=== PATIENT | female | born 1995 | race Caucasian/White ===

== ENCOUNTER 2019-07-22 15:45 | Outpatient (CLI) | payer OTHER, SELFPAY ==
[2019-07-22] VITALS (11 sets, daily range): BP systolic 112–136; BP diastolic 66–83; PULSE 64–80; RESP 16; TEMP 37.2; O2SAT 97; BMI 34.0
[2019-07-22 16:47] LABS: Hematocrit 32.9 % (37-47); Hemoglobin 10.8 g/dL (12.0-15.0); Mean Corp Hgb Conc 32.8 g/dL (32-36); Mean Corpuscular Hgb 30.1 pg (27.0-32.0); Mean Corpuscular Volume 91.6 fL (81-99); Mean Platelet Vol. 11.3 fl (6.2-12.0); Platelet Count 110 K/mm3 (150-450); RBC Distribution Width SD 46.9 fl (35.1-43.9); Red Blood Count 3.59 M/mm3 (4.2-5.4); White Blood Count 7.6 K/mm3 (4.4-11.0)
[2019-07-22 17:02] LABS: Creatinine, Urine (random) < 13.00 mg/dL (NO RANGE EST.); Protein, Urine (Random) 54.5 mg/dL (<11.9)
[2019-07-22 17:15] LABS: AST(SGOT) 30 U/L (15-37); Alanine Aminotransfer ALT/SGPT 36 U/L (13-56); EST Glomerular Filtration Rate 160 mL/min (>60); Est Glom Filt Rate - Afr Amer 194 mL/min (>60); Estimated Creatinine Clearance 156.12 ml/min; Uric Acid 4.3 mg/dL (2.6-6.0)
[2019-07-22 17:39] LABS: International Normalized Ratio 0.9; Prothrombin Time (Protime)PT. 11.8 SECONDS (11.7-14.9)
[2019-07-22 17:40] LABS: Partial Thromboplast Time 30.8 Seconds (24.1-36.2)
--- NOTE | 2019-07-22 21:17 | OB.TRI.NOTE ---
History of Present Illness Date of Service: 07/22/19 Was patient seen by the physician?: Yes Reason For Visit: R/O PRE ECLAMPSIA Date of Service: 07/22/19 Final CARMEL: 08/10/19 Final CARMEL Source: US <20 weeks Gestational age: 37 Weeks and 2 Days History of Present Illness: Sent here for BP check and labs. BP elevated in the office but patient was anxious. Mild intemittent BRIGHT relived w/ tylenol. No epigastric pain or diplopia. Allergies No Known Allergies Allergy (Verified 07/22/19 16:21) Laboratory Studies: Laboratory Tests 07/22/19 07/22/19 07/22/19 Range/Units 16:32 16:32 16:32 WBC (4.4-11.0) K/mm3 RBC (4.2-5.4) M/mm3 Hgb (12.0-15.0) g/dL Hct (37-47) % MCV (81-99) fL MCH (27.0-32.0) pg MCHC (32-36) g/dL RDW Std Deviation (35.1-43.9) fl RDW Coeff of Gilberto (11.6-14.6) % Plt Count (150-450) K/mm3 MPV (6.2-12.0) fl PT 11.8 (11.7-14.9) SECONDS INR 0.9 APTT 30.8 (24.1-36.2) Seconds Creatinine 0.50 L (0.55-1.02) mg/dL Estim Creat Clear Calc 156.12 ml/min Est GFR (MDRD) Af Amer 194 (>60) mL/min Est GFR (MDRD) Non-Af 160 (>60) mL/min Uric Acid 4.3 (2.6-6.0) mg/dL AST 30 (15-37) U/L ALT 36 (13-56) U/L U Random Total Protein 54.5 H (<11.9) mg/dL Urine Creatinine < 13.00 (NO RANGE EST.) mg/dL Protein/Creatinin Ratio TNP 07/22/19 Range/Units 16:32 WBC 7.6 (4.4-11.0) K/mm3 RBC 3.59 L (4.2-5.4) M/mm3 Hgb 10.8 L (12.0-15.0) g/dL Hct 32.9 L (37-47) % MCV 91.6 (81-99) fL MCH 30.1 (27.0-32.0) pg MCHC 32.8 (32-36) g/dL RDW Std Deviation 46.9 H (35.1-43.9) fl RDW Coeff of Gilberto 14.0 (11.6-14.6) % Plt Count 110 L (150-450) K/mm3 MPV 11.3 (6.2-12.0) fl PT (11.7-14.9) SECONDS INR APTT (24.1-36.2) Seconds Creatinine (0.55-1.02) mg/dL Estim Creat Clear Calc ml/min Est GFR (MDRD) Af Amer (>60) mL/min Est GFR (MDRD) Non-Af (>60) mL/min Uric Acid (2.6-6.0) mg/dL AST (15-37) U/L ALT (13-56) U/L U Random Total Protein (<11.9) mg/dL Urine Creatinine (NO RANGE EST.) mg/dL Protein/Creatinin Ratio Physical Exam Vitals: Vital Signs Temp Pulse Resp BP Pulse Ox 98.9 F 80 16 126/77 H 97 07/22/19 16:13 07/22/19 17:43 07/22/19 18:06 07/22/19 17:43 07/22/19 16:13 NST - FHR Rate Baby A Baseline: 130 Variability:: Moderate Accelerations:: 15 x 15 Decelerations:: None NST Reactive:: Yes FHR Category:: Category I Uterine Activity:: irritability Impression/Plan 23 YOF high risk primagravida, h/o VTE on lovenox no evidence of preeclampsia F/u in 3-4 days for BP check or prn symptoms of preeclampsia kick counts cont. lovenox labs reviewed, mild thrombocytopenia, likely gestational but would like to recheck CBC in 3-4 days or prn pt agrees w/ plan
== END 2019-07-22 18:02 | disposition home or self-care (01) ==
LOC: WPOUT 15:57 → OBT 15:59
PROVIDERS: Referring Provider Obstetrics & Gynecology; Visit Provider Obstetrics & Gynecology
DX: O26.893 Other specified pregnancy related conditions, third trimester (principal); R03.0 Elevated blood-pressure reading, without diagnosis of hypertension; R51 Headache; O99.113 Other diseases of the blood and blood-forming organs and certain disorders involving the immune mechanism complicating pregnancy, third trimester; D69.6 Thrombocytopenia, unspecified; O09.93 Supervision of high risk pregnancy, unspecified, third trimester; Z3A.37 37 weeks gestation of pregnancy; Z86.718 Personal history of other venous thrombosis and embolism; Z79.01 Long term (current) use of anticoagulants
CPT/HCPCS: 36415; 59025; 59050; 82565; 82570; 84156; 84450; 84460; 84550; 85027; 85610; 85730; 99218; G0378

== ENCOUNTER 2019-07-28 21:15 | Outpatient (CLI) | payer OTHER, SELFPAY ==
[2019-07-22 16:25] VITALS: BMI 34.0
[2019-07-28] VITALS (10 sets, daily range): BP systolic 129–145; BP diastolic 85–101; PULSE 76–97; RESP 16; TEMP 36.8; O2SAT 98; BMI 33.8
[2019-07-28 22:29] LABS: Mean Corp Hgb Conc 33.3 g/dL (32-36); Mean Corpuscular Hgb 30.9 pg (27.0-32.0); Mean Corpuscular Volume 92.7 fL (81-99); Mean Platelet Vol. 11.2 fl (6.2-12.0); Platelet Count 107 K/mm3 (150-450); RBC Distribution Width CV 14.6 % (11.6-14.6); Red Blood Count 3.56 M/mm3 (4.2-5.4); White Blood Count 7.5 K/mm3 (4.4-11.0)
[2019-07-28 22:37] LABS: International Normalized Ratio 0.9; Prothrombin Time (Protime)PT. 12.1 SECONDS (11.7-14.9)
[2019-07-28 22:38] LABS: Partial Thromboplast Time 32.6 Seconds (24.1-36.2)
[2019-07-28 22:39] LABS: Protein, Urine (Random) 97.5 mg/dL (<11.9); Protein:Creat Ratio 2231 mg/g CRE (0-200)
[2019-07-28 22:43] LABS: AST(SGOT) 25 U/L (15-37); Alanine Aminotransfer ALT/SGPT 34 U/L (13-56); Creatinine, Serum 0.57 mg/dL (0.55-1.02); EST Glomerular Filtration Rate 137 mL/min (>60); Est Glom Filt Rate - Afr Amer 166 mL/min (>60); Estimated Creatinine Clearance 136.94 ml/min; Uric Acid 4.5 mg/dL (2.6-6.0)
--- NOTE | 2019-07-28 23:10 | OB.TRI.NOTE ---
- Problem List (1) High blood pressure affecting in third trimester, antepartum Status: Acute (2) 38 weeks gestation of Status: Acute History of Present Illness Date of Service: 07/28/19 Was patient seen by the physician?: Yes Reason For Visit: R/O preeclampsia Date of Service: 07/28/19 Final CARMEL: 08/10/19 Final CARMEL Source: US <20 weeks Gestational age: 38 Weeks and 1 Days History of Present Illness: Patient called and stated she has been taking her Blood pressures at home and they were elevated. Reports readings of 141-161/91-106. Patient denies any headache, vision changes or RUQ pain. Patient reports history of anxiety and is feeling anxious at this time. Allergies No Known Allergies Allergy (Verified 07/28/19 22:15) - Pertinent Past Medical History Medical History: Past Medical History (Last Updated 07/28/19 @ 23:22 by Macy Workman CNM) Protein S deficiency (Acute) Factor V Leiden (Acute) Hypothyroidism (Acute) DVT (deep venous thrombosis) (Acute) Anxiety (Acute) Laboratory Studies: Laboratory Tests 07/28/19 07/28/19 07/28/19 Range/Units 22:05 22:05 22:05 WBC 7.5 (4.4-11.0) K/mm3 RBC 3.56 L (4.2-5.4) M/mm3 Hgb 11.0 L (12.0-15.0) g/dL Hct 33.0 L (37-47) % MCV 92.7 (81-99) fL MCH 30.9 (27.0-32.0) pg MCHC 33.3 (32-36) g/dL RDW Std Deviation 49.0 H (35.1-43.9) fl RDW Coeff of Gilberto 14.6 (11.6-14.6) % Plt Count 107 L (150-450) K/mm3 MPV 11.2 (6.2-12.0) fl PT 12.1 (11.7-14.9) SECONDS INR 0.9 APTT 32.6 (24.1-36.2) Seconds Creatinine 0.57 (0.55-1.02) mg/dL Estim Creat Clear Calc 136.94 ml/min Est GFR (MDRD) Af Amer 166 (>60) mL/min Est GFR (MDRD) Non-Af 137 (>60) mL/min Uric Acid 4.5 (2.6-6.0) mg/dL AST 25 (15-37) U/L ALT 34 (13-56) U/L U Random Total Protein (<11.9) mg/dL Urine Creatinine (NO RANGE EST.) mg/dL Protein/Creatinin Ratio (0-200) mg/g CRE 07/28/19 Range/Units 22:00 WBC (4.4-11.0) K/mm3 RBC (4.2-5.4) M/mm3 Hgb (12.0-15.0) g/dL Hct (37-47) % MCV (81-99) fL MCH (27.0-32.0) pg MCHC (32-36) g/dL RDW Std Deviation (35.1-43.9) fl RDW Coeff of Gilberto (11.6-14.6) % Plt Count (150-450) K/mm3 MPV (6.2-12.0) fl PT (11.7-14.9) SECONDS INR APTT (24.1-36.2) Seconds Creatinine (0.55-1.02) mg/dL Estim Creat Clear Calc ml/min Est GFR (MDRD) Af Amer (>60) mL/min Est GFR (MDRD) Non-Af (>60) mL/min Uric Acid (2.6-6.0) mg/dL AST (15-37) U/L ALT (13-56) U/L U Random Total Protein 97.5 H (<11.9) mg/dL Urine Creatinine 43.70 (NO RANGE EST.) mg/dL Protein/Creatinin Ratio 2231 H (0-200) mg/g CRE Review of Systems Constitutional: Denies: Anorexia, Fever Eyes: Denies: Blurred vision, Double vision, Vision Change HEENT: Denies: Head Aches Cardiovascular: Denies: Chest Pain Respiratory: Denies: Cough, Shortness of Breath Neurological: Denies: Blurred vision, Headaches Psychiatric: Reports: Anxiety Physical Exam Vitals: Vital Signs Temp Pulse BP Pulse Ox 98.2 F 76 131/86 H 98 07/28/19 21:33 07/28/19 22:47 07/28/19 22:47 07/28/19 21:43 General: Alert Cardiovascular: Regular rate Lungs: Normal air movement Abdomen: Soft, Non Tender, Gravid Extremities:: Normal pulses, Deep tendon reflexes - +1 , no clonus Neurological: Cranial nerves II-XII grossly intact Estimated gestational size: Appropriate for gestational size Cervix Dilation (cm): 1 Station: -3 Effacement (%): 50 NST - FHR Rate Baby A Baseline: 145 Variability:: Moderate Accelerations:: 15 x 15 Decelerations:: None NST Reactive:: Yes FHR Category:: Category I Uterine Activity:: TOCO reading every 2-5 minutes. Patient denies feeling contractions Impression/Plan 23 YO at 38.1 weeks gestation with increased blood pressures at home. H/O DVT and currently on Lovenox BID No evidence of preeclampsia Pre-E labs reviewed and are within normal limits Urine P/C ratio elevated at 2231 BP's while here in triage ranged from 129-139/ 85-92 Patient to follow up with Dr. Murrieta tomorrow for scheduled appt. Patient will hold morning Lovenox dose in case decision made for induction of labor Dr. John aware and agrees with plan of care Patient and agree with plan of care
== END 2019-07-28 23:10 | disposition home or self-care (01) ==
LOC: WPOUT 21:22 → WP 21:22
PROVIDERS: Visit Provider Advanced Practice Midwife
DX: O26.893 Other specified pregnancy related conditions, third trimester (principal); R03.0 Elevated blood-pressure reading, without diagnosis of hypertension; O99.113 Other diseases of the blood and blood-forming organs and certain disorders involving the immune mechanism complicating pregnancy, third trimester; D68.51 Activated protein C resistance; O99.343 Other mental disorders complicating pregnancy, third trimester; F41.9 Anxiety disorder, unspecified; O99.283 Endocrine, nutritional and metabolic diseases complicating pregnancy, third trimester; E03.9 Hypothyroidism, unspecified; Z3A.38 38 weeks gestation of pregnancy; Z86.718 Personal history of other venous thrombosis and embolism; Z79.01 Long term (current) use of anticoagulants
CPT/HCPCS: 36415; 59025; 59050; 82565; 82570; 84156; 84450; 84460; 84550; 85027; 85610; 85730; 99218; G0378

== ENCOUNTER 2019-07-29 10:35 | Inpatient (IN) | payer OTHER, SELFPAY ==
[2019-07-28 22:14] VITALS: BMI 33.8
[2019-07-29] VITALS (61 sets, daily range): BP systolic 128–180; BP diastolic 68–107; PULSE 70–93; RESP 18; TEMP 35.8–36.9; O2SAT 82–100; BMI 33.9
[2019-07-29] MEDS: Lactated Ringers 1,000 ML 50 ML IV (11:10)
[2019-07-29 11:25] LABS: Absolute Lymphocyte Count 1.57 X10^3/uL (0.83-4.51); Absolute Neutrophil Count 4.9 X10^3/uL (2.0-7.7); Basophil# 0.02 X10^3/uL; Basophil% 0.3 % (0-1); Eosinophil# 0.04 X10^3/uL; Eosinophils% 0.6 % (0-5); Hematocrit 35.1 % (37-47); Hemoglobin 11.4 g/dL (12.0-15.0); Lymphocyte # 1.57 X10^3/ul (4.0); Lymphocyte % 21.9 % (19-41); Mean Corp Hgb Conc 32.5 g/dL (32-36); Mean Corpuscular Hgb 29.7 pg (27.0-32.0); Mean Corpuscular Volume 91.4 fL (81-99); Mean Platelet Vol. 11.2 fl (6.2-12.0); Monocyte# 0.52 X10^3/uL; Monocyte% 7.2 % (0-10); NRBC Flagged by Analyzer 0 % (0-5); Neutrophil # 4.89 X10^3/uL (2.7-7.7); Neutrophil % 68.1 % (47-70); Platelet Count 129 K/mm3 (150-450); RBC Distribution Width CV 14.6 % (11.6-14.6); RBC Distribution Width SD 48.1 fl (35.1-43.9); Red Blood Count 3.84 M/mm3 (4.2-5.4); White Blood Count 7.2 K/mm3 (4.4-11.0)
--- NOTE | 2019-07-29 12:05 | HP.PCM_ITS ---
- Problem List (1) 38 weeks gestation of Status: Acute (2) Protein S deficiency Status: Acute (3) Factor V Leiden Status: Acute (4) Hypothyroidism Status: Acute (5) DVT (deep venous thrombosis) Status: Acute (6) Anxiety Status: Acute (7) Pre-eclampsia Status: Acute History Date of Admission: 07/29/19 Final CARMEL: 08/10/19 Final CARMEL Source: US <20 weeks Gestational age: 38 Weeks and 2 Days History of this : This is a 23 year-old, G 1, P 0, at 38 weeks gestational age who presents for an induction of labor for preeclampsia. Medical History: Medical History (Last Updated 07/28/19 @ 23:22 by Macy Workman CNM) Protein S deficiency (Acute) D68.59 Factor V Leiden (Acute) D68.51 Hypothyroidism (Acute) E03.9 DVT (deep venous thrombosis) (Acute) I82.409 Anxiety (Acute) F41.9 Allergies No Known Allergies Allergy (Verified 07/28/19 22:15) Home Medications: Home Medications Enoxaparin Sodium [Lovenox] 80 mg SQ BID 07/22/19 Ferrous Sulfate 325 mg PO QODAY 07/22/19 Pnv No.95/Ferrous Fum/Folic AC [ Vitamin Tablet] 1 ea PO DAILY 07/22/19 Smoking Status: Never smoker Number of Fetus(es): 1 NST - FHR Rate Baby A FHR Category:: Category I History Past Pregnancies: Past Pregnancies Delivery Date Name GA/ Weeks Outcome Route Wt Infant Sex Labor Length Anesthesia Delivery Location Provider FOB Labs: See [facility] records Expected Delivery Method: Spontaneous Vaginal Review of Systems Eyes: Denies: Blurred vision, Vision Change HEENT: Denies: Head Aches Cardiovascular: Denies: Chest Pain Respiratory: Denies: Shortness of Breath Gastrointestinal: Denies: Abdominal Pain, Nausea, Vomiting Gynecological: Reports: - - No ctx, lof. Good FM.. Denies: Vaginal bleeding Physical Exam Vitals: Vital Signs Temp Pulse BP Pulse Ox 98.4 F 87 137/85 H 96 07/29/19 10:57 07/29/19 10:56 07/29/19 10:56 07/29/19 10:56 General: Alert, No apparent distress HEENT: Atraumatic Abdomen: Soft, Non Tender, Gravid Neurological: Neuro grossly intact [employer]: Normal external genitalia Estimated gestational size: Appropriate for gestational size Presentation: Cephalic Cervix Dilation (cm): 1 Assessment/Plan All Active Problems (Last Updated 07/28/19 @ 23:22 by Macy Workman CNM) Pre-eclampsia (Acute) High blood pressure affecting in third trimester, antepartum (Acute) 38 weeks gestation of (Acute) Protein S deficiency (Acute) Factor V Leiden (Acute) Hypothyroidism (Acute) DVT (deep venous thrombosis) (Acute) Anxiety (Acute) This is a 23 year-old, at 38 wks gestational age admitted for IOL for pre- eclampsia. - Mild range blood pressures at prior appointments and in the office today. Elevated p/c ratio. No symptoms of pre-e. Treated 1 severe range blood pressure on admission with IV labetalol. Hypertensive protocol started. Discussed magnesium for seizure prophylaxis if she needs additional treatment for blood pressures, or if she develops any symptoms of preeclampsia - Cytotec, hinton induction - H/o DVT, protein S deficiency, and heterozygous for factor 5: Hold Lovenox at this time. Last dose of Lovenox was 07/27 at 5:30 pm. SCD's for DVT proph. Will continue Lovenox - EFW estimated to be < 4500 g and pelvis adequate. Anticipate vaginal delivery - Otherwise routine intrapartum care
[2019-07-29] MEDS: miSOPROStol 25 MCG TABLET PO (12:17)
[2019-07-29] MEDS: 0.9% Normal Saline Single 100 ML IV.SOLN. IY (13:02)
[2019-07-29] MEDS: Oxytocin 30 units/NS 500 ml 30 UNITS/500 ML IV.SOLN IV (16:06)
--- NOTE | 2019-07-29 18:56 | PCM.PN.BLA ---
Progress Note Ayoub out around 3 PM. Cervix 4 cm dilated but baby still ballotable. Unable to rupture membranes at this time. Continue titration of Pitocin. Will recheck and assess for rupture in a few hours. STROKE Vital Signs/Narrative: Vital Signs Temp Pulse BP Pulse Ox 07/29/19 18:04 98.1 F 85 132/86 H 99 07/29/19 18:03 90 98 07/29/19 18:02 85 132/86 H 07/29/19 17:07 97.8 F 85 128/82 H 96 07/29/19 17:05 85 96 07/29/19 17:03 97.9 F 07/29/19 17:02 90 128/82 H 07/29/19 16:11 83 136/80 H 07/29/19 15:48 97.8 F 83 130/84 H 98 07/29/19 15:47 97.9 F 93 98 07/29/19 15:44 82 130/84 H 07/29/19 15:30 81 137/90 H 07/29/19 15:14 75 131/86 H 07/29/19 14:59 72 133/85 H
--- NOTE | 2019-07-29 21:12 | PCM.PN.BLA ---
Progress Note Patient getting uncomfortable with contractions. Cervix remains unchanged but head is now well applied. AROM performed for clear fluid. Category 1 tracing. Continue current management. Blood pressures are mild range. Patient remains asymptomatic. STROKE Vital Signs/Narrative: Vital Signs Temp Pulse BP Pulse Ox 07/29/19 20:09 74 146/89 H 07/29/19 19:51 97.9 F 77 153/96 H 07/29/19 18:04 98.1 F 85 132/86 H 99 07/29/19 18:03 90 98 07/29/19 18:02 85 132/86 H
--- NOTE | 2019-07-29 22:01 | PCM.PN.BLA ---
Progress Note Patient has had additional severe range blood pressures. She remains asymptomatic. Given repeat severe range blood pressures will start magnesium for seizure prophylaxis. Discussed magnesium with patient. Will give a 4 g magnesium bolus followed by 2 g an hour. STROKE Vital Signs/Narrative: Vital Signs Temp Pulse BP Pulse Ox 07/29/19 21:46 75 163/90 H 07/29/19 21:35 98.1 F 75 165/94 H 98 07/29/19 20:09 74 146/89 H 07/29/19 19:51 97.9 F 77 153/96 H 07/29/19 18:04 98.1 F 85 132/86 H 99 07/29/19 18:03 90 98 07/29/19 18:02 85 132/86 H
[2019-07-29] MEDS: Lactated Ringers 500 ML 999 ML IV (22:16)
[2019-07-29] MEDS: Magnesium Sulfate 4gm/100mL 4 GM/100 ML IV.SOLN. IV (22:20)
[2019-07-29] MEDS: Magnesium Sulfate 20 GM/500 ML BAG IV (22:39)
[2019-07-29] MEDS: fentaNYL-bupivacaine (epidural) 100 ML BAG EPIDURAL (23:10)
[2019-07-30] VITALS (57 sets, daily range): BP systolic 116–146; BP diastolic 66–95; PULSE 75–99; RESP 14–18; TEMP 36.1–37.3; O2SAT 93–100
[2019-07-30] MEDS: Oxytocin 30 units/NS 500 ml 30 UNITS/500 ML IV.SOLN 334 UNITS IV (03:41)
[2019-07-30] MEDS: miSOPROStol 200 MCG Tablet 1000 MCG RECTAL (03:55)
--- NOTE | 2019-07-30 04:58 | PCM.OPRPT ---
Problem List (1) 38 weeks gestation of Status: Acute (2) Protein S deficiency Status: Acute (3) Factor V Leiden Status: Acute (4) Hypothyroidism Status: Acute (5) DVT (deep venous thrombosis) Status: Acute (6) Anxiety Status: Acute (7) Pre-eclampsia Status: Acute Report of Operation Date of Procedure: 07/30/19 Pre-Operative Diagnosis: 38 wk gestation and pre-eclampsia Post-Operative Diagnosis: As above Surgery/Procedure Performed:: Description of Surgical Findings:: Viable male in vertex presentation. Normal and intact appearing placenta with a three-vessel cord. Type of Anesthesia:: Epidural Special Medications: None Specimen's removed: Placenta Drains: Ayoub Estimated Blood Loss (mL): 200 Description of Procedure: Patient complete and pushing. Head, anterior shoulder, posterior shoulder, followed by body of infant were delivered without any force or delay. Viable was delivered atraumatically and placed on maternal abdomen. Cord was clamped and cut after 60 sec delay by the father the baby. Placenta was delivered with fundal massage. Uterus was explored x1. Fundus was firm and bleeding hemostatic. A second-degree perineal laceration was repaired in usual fashion. Instrument and sponge counts were correct. Vaginal sweep was performed. Grafts/Implants Used: None - Complications None - Admit VTE Documentation VTE Present on Admission: No - History of DVT VTE Mechan Device Prophylaxis: SCD's VTE Pharm Prophylaxis ordered?: Yes Vaginal Delivery Maternal Presentation: Medically Indicated Induction Method of Induction: Pitocin, Ayoub Bulb, Amniotomy, Cytotec Medical Reason for Induction: - - Preeclampsia Amniotic Membrane Rupture Type: Artificial Amniotic Fluid Description: Clear Surgery/ Procedure Performed: Spontaneous Vaginal Delivery Type of Anesthesia: Epidural Presentation: Vertex Placental Delivery Description: Expressed Cord Vessel Description: 3 Vessels Cord Entanglement: None Drain: Ayoub to straight drain Estimated Blood Loss: 200 Infant A gender: Male (1 minute): 9 (5 minute): 9 Episiotomy Description: None Laceration: 2nd degree Medications given after delivery: IV Pitocin, - - Cytotec rectal Complications: None
[2019-07-30] MEDS: Lactated Ringers 1,000 ML 15 ML IV (06:15)
[2019-07-30] MEDS: Magnesium Sulfate 20 GM/500 ML BAG IV ×2 (08:27→18:23)
[2019-07-30 14:17] LABS: Hematocrit 32.5 % (37-47); Hemoglobin 10.7 g/dL (12.0-15.0); Mean Corp Hgb Conc 32.9 g/dL (32-36); Mean Corpuscular Hgb 30.3 pg (27.0-32.0); Mean Corpuscular Volume 92.1 fL (81-99); Mean Platelet Vol. 10.9 fl (6.2-12.0); Platelet Count 133 K/mm3 (150-450); RBC Distribution Width CV 14.8 % (11.6-14.6); Red Blood Count 3.53 M/mm3 (4.2-5.4); White Blood Count 11.7 K/mm3 (4.4-11.0)
[2019-07-30 14:35] LABS: BUN 7 mg/dL (7-18); Creatinine, Serum 0.57 mg/dL (0.55-1.02); EST Glomerular Filtration Rate 138 mL/min (>60); Estimated Creatinine Clearance 136.94 ml/min; Glucose 119 mg/dL (74-106)
[2019-07-30 14:36] LABS: ALB/GLOB Ratio 0.8 RATIO (0.9-2.4); AST(SGOT) 25 U/L (15-37); Alanine Aminotransfer ALT/SGPT 29 U/L (13-56); Albumin, Serum 2.5 g/dL (3.2-5.0); Alkaline Phosphatase 94 U/L (45-117); Anion Gap 8 (5-15); BUN/Creat Ratio 12.3 RATIO (10-20); Calcium,Total 7.5 mg/dL (8.5-10.1); Chloride 108 mmol/L (98-107); Est Glom Filt Rate - Afr Amer 167 mL/min (>60); Globulin 3.1 g/dL (2.2-4.2); Potassium 3.9 mmol/L (3.5-5.1); Protein, Total 5.6 g/dL (6.4-8.2); Sodium Level 140 mmol/L (136-145)
[2019-07-30] MEDS: Acetaminophen 500 MG Tablet 1000 MG PO (15:59)
[2019-07-30] MEDS: Enoxaparin 80 MG/0.8 ML Syringe SC (15:59)
[2019-07-31] VITALS (17 sets, daily range): BP systolic 117–132; BP diastolic 66–81; PULSE 68–87; RESP 16–18; TEMP 36.1–37.1; O2SAT 98–99
[2019-07-31] MEDS: Enoxaparin 80 MG/0.8 ML Syringe SC ×2 (03:40→16:46)
--- NOTE | 2019-07-31 08:29 | PCM.PN.OB ---
Patient Problems: Active and Suspected Problems (Last Updated 07/28/19 @ 23:22 by Macy Workman CNM) Pre-eclampsia (Acute) Subjective: Patient doing well. Denies headache, vision changes, right upper quadrant pain, nausea, vomiting. Denies lightheadedness, dizziness, leg pain. Ambulating and voiding without difficulty. Lochia normal. . - Physical Exam Vitals/I&O's: Vital Signs Temp Pulse Resp BP Pulse Ox 97.3 F L 78 16 127/73 H 98 07/31/19 08:21 07/31/19 08:21 07/31/19 08:21 07/31/19 08:21 07/31/19 03:31 Oxygen Delivery Method Room Air Weight: 203 lb 14.841 oz Body Mass Index (BMI) 33.9 Intake and Output for Last 24 Hours 07/29/19 07/30/19 07/31/19 23:59 23:59 23:59 Intake Total 2814.31 / 2814.31 5103.62 / 5103.62 653.01 / 653.01 Output Total 1700 / 1700 5715 / 5715 725 / 725 Balance 1114.31 / 1114.31 -611.38 / -611.38 -71.99 / -71.99 General: Alert, No apparent distress Extremities: Edema Skin: No rashes Neurological: Neuro grossly intact Psych/Mental Status: Normal Affect, Appropriate Laboratory Results 07/30/19 14:05: WBC 11.7 H, RBC 3.53 L, Hgb 10.7 L, Hct 32.5 L, MCV 92.1, MCH 30.3, MCHC 32.9, RDW Std Deviation 49.0 H, RDW Coeff of Gilberto 14.8 H, Plt Count 133 L, MPV 10.9 07/30/19 14:05: Sodium 140, Potassium 3.9, Chloride 108 H, Carbon Dioxide 24.0, Anion Gap 8, BUN 7, Creatinine 0.57, Estim Creat Clear Calc 136.94, Est GFR (MDRD) Af Amer 167, Est GFR (MDRD) Non-Af 138, BUN/Creatinine Ratio 12.3, Glucose 119 H, Calcium 7.5 L, Total Bilirubin 0.20, AST 25, ALT 29, Alkaline Phosphatase 94, Total Protein 5.6 L, Albumin 2.5 L, Globulin 3.1, Albumin/Globulin Ratio 0.8 L Current Medications Acetaminophen (Tylenol) 1,000 mg PO Q8H PRN PRN PRN Reason: Pain Score 1-3/10 Last Admin: 07/30/19 15:59 Dose: 1,000 mg Documented by: Bisacodyl (Dulcolax) 10 mg RECTAL UD PRN PRN Reason: If no BM Dibucaine (Dibucaine) 1 applic TOPICAL TID PRN PRN; Protocol PRN Reason: Discomfort Enoxaparin Sodium (Lovenox) 80 mg SC Q12H [facility] Last Admin: 07/31/19 03:40 Dose: 80 mg Documented by: Hydrocortisone (Hytone) 1 applic TOPICAL TID PRN PRN; Protocol PRN Reason: Discomfort Lactated Ringer's () 1,000 mls @ 15 mls/hr IV .Q48H [facility] Last Infusion: 07/31/19 03:46 Dose: Infused Documented by: Naloxone HCl 4 mg/ Dextrose 504 mls @ 0 mls/hr IV .Q0M PRN; Protocol PRN Reason: To maintain Resp. rate >10 Ibuprofen (Motrin) 600 mg PO Q6H PRN PRN PRN Reason: Pain Score 1-3/10 Methylergonovine Maleate (Methergine) 0.2 mg IM X1 PRN PRN Reason: Excess bleeding/uterine atony Nalbuphine HCl (Nubain) 5 mg IV Q3H PRN PRN PRN Reason: ITCHING Naloxone HCl (Narcan) 0.02 mg IV Q1M PRN PRN Reason: RR< 10 AND PT UNRESPONSIVE Ondansetron HCl (Zofran) 4 mg IV Q4H PRN PRN PRN Reason: Nausea Senna/Docusate Sodium (Senokot-S, Roseanna-Colace) 1 - 2 tablet PO DAILY PRN PRN PRN Reason: Constipation Simethicone (Mylicon) 80 mg PO PCHS PRN PRN Reason: Indigestion/Stomach pain Sodium Chloride () 5 - 15 ml IV UD PRN PRN Reason: SALINE FLUSH Medical Necessity - Tobacco Use Smoking Status: Never smoker Assessment/Plan All Active Problems (Last Updated 07/28/19 @ 23:22 by Macy Plotts, CNM) Pre-eclampsia (Acute) High blood pressure affecting in third trimester, antepartum (Acute) 38 weeks gestation of (Acute) Protein S deficiency (Acute) Factor V Leiden (Acute) Hypothyroidism (Acute) DVT (deep venous thrombosis) (Acute) Anxiety (Acute) Patient is day 1 from a spontaneous vaginal delivery. She was induced for preeclampsia with severe features. She is completed 24 hours of magnesium drip for seizure prophylaxis. - No pre-e symptoms today. Labs reviewed from yesterday. BP normal. Will check BP q 2 hours today. Discussed with pt she will need virtual visit with BP check this week. She has a BP cuff and has been checking her BP at home so feels comfortable with this plan -History of DVT, protein S deficiency, factor V: Patient is weight is 191 pounds. We will continue current dosing of therapeutic Lovenox. Will notify hematology the patient has delivered and instructed patient to call for follow-up - Meeting all milestones to go home - Discussed COVID-19 with patient - She desires to go home today. Okay to d/c later this afternoon after 4pm if she remains asymptomatic and her BP's are normal - She has lovenox and a BP cuff at home - Reviewed d/c instructions and signs and symptoms of worsening pre-e and when to call
--- NOTE | 2019-07-31 08:41 | DCINST_ITS ---
Discharge Diet: No Restrictions Discharge Activity: May Shower, May Take a Tub Bath May shower in (days): 0 May resume sexual activity in: 6 weeks Ice area for (Minutes): 15 Weight Bearing Status: Weight bearing as tolerated Lifting Restrictions: None Call your doctor if you observe: Fever of 101 or Higher, Inability to urinate, Inability to have a bowel movement, Using more than one pad per hour, Shortness of breath, Dizziness, Chest pain, Increased palpitations (irregular heartbeat), Calf discomfort, Uncontrolled pain Cleanse incision/area with: Soap & Water Instructions: After a Vaginal , Understanding Preeclampsia Additional Instructions: If you experience any of the following, contact your healthcare provider. * Bleeding that soaks a pad every hour for 2 hours * Fever 100.4 or higher * Unrelieved incision or abdominal pain * Swelling, redness, discharge or bleeding from your incision or episiotomy site * Your incision begins to separate * Problems urinating (including inability to urinate or burning while urinating). * Visual changes * Severe headache * Flu-like symptoms * Pain or redness in one of both of your breasts * Pain, warmth, tenderness or swelling in your legs, especially the calf area * Frequent nausea and vomiting * Symptoms of depression or anxiety If you experience any of the following, call 911 or go to the nearest Emergency Room. * Chest pain * Problems breathing * Seizure activity * Partial or complete paralysis of a body part, slurred speech, weakness or drooping of the face, or a sudden inability to walk or hold your balance Allergies/Adverse Reactions: Allergies No Known Allergies Allergy (Verified 07/28/19 22:15) Medications to take at Discharge Enoxaparin Sodium [Lovenox] 80 mg SQ BID 07/22/19 Ferrous Sulfate 325 mg PO QODAY 07/22/19 Pnv No.95/Ferrous Fum/Folic AC [ Vitamin Tablet] 1 ea PO DAILY 07/22/19 Please Follow Up With: Katja Moreno DO When: 1 week for blood pressure check. 6 weeks for check. Please Follow Up With: Ronny Rivas DO When: Call for follow up. Test Results: Test results from this visit will be discussed in further detail at your follow- up appointment, if applicable.
[2019-07-31] MEDS: Acetaminophen 500 MG Tablet 1000 MG PO (09:46)
== END 2019-07-31 18:20 | disposition home or self-care (01) | DRG 806 ==
PROVIDERS: Admitting Provider Obstetrics & Gynecology; Visit Provider Obstetrics & Gynecology
DX: O14.14 Severe pre-eclampsia complicating childbirth (principal); R03.0 Elevated blood-pressure reading, without diagnosis of hypertension; O99.12 Other diseases of the blood and blood-forming organs and certain disorders involving the immune mechanism complicating childbirth; D68.51 Activated protein C resistance; D68.59 Other primary thrombophilia; O70.1 Second degree perineal laceration during delivery; O99.284 Endocrine, nutritional and metabolic diseases complicating childbirth; E03.9 Hypothyroidism, unspecified; Z79.01 Long term (current) use of anticoagulants; Z79.899 Other long term (current) drug therapy; Z86.718 Personal history of other venous thrombosis and embolism; Z3A.38 38 weeks gestation of pregnancy; Z37.0 Single live birth
CPT/HCPCS: 59025; 59050; 80053; 85025; 85027; 86850; 86900; 86901; 99218; J7120; G0378; J3490

== ENCOUNTER 2021-05-25 21:55 | Inpatient (IN) | payer OTHER, SELFPAY ==
[2021-05-25 21:47] VITALS: PULSE 119; O2SAT 100
[2021-05-25] MEDS: Lactated Ringers 1,000 ML 200 ML IV (21:50)
[2021-05-25 21:52] VITALS: PULSE 113; O2SAT 99
[2021-05-25 21:57] VITALS: PULSE 102; O2SAT 99
[2021-05-25 21:59] VITALS: BP 120/65; PULSE 105
--- NOTE | 2021-05-25 21:59 | HP.PCM.OB_ITS ---
HPI - General General Date of Admission: 05/25/21 HPI Narrative MAC TALBOT, is a 25 F at 37.6 weeks gestation who presents to triage with large gush of fluid around 2044 and saw blood. Patient evaluated at bedside upon arriving to unit. Positive movement. Had intercourse last night and began having more frequent, painful contractions today. Rates pain 4/10. complicated by history of DVT, Factor V, protein S deficiency, hypothyroidism, anxiety and depression. Maternal Data Information CARMEL Calculator Estimated Delivery Date Method Current WG Current Estimate 06/09/21 Manual 37w 6d [facility] Medical History (Updated 05/25/21 @ 22:18 by Macy Workman CNM) Anxiety DVT (deep venous thrombosis) Factor V Leiden Hypothyroidism Protein S deficiency Home Medications PNV cmb#[id number]-ferrous fumarate-FA 1 ea PO DAILY 07/22/19 [History Last Taken 07/29/19 00:00 1 tab] enoxaparin 80 mg SQ BID 07/22/19 [History Last Taken 07/28/19 18:00] ferrous sulfate 325 mg PO QODAY 07/22/19 [History Last Taken 07/27/19 18:00 1 tab] aspirin 05/25/21 [History Last Taken 05/24/21 21:30] levothyroxine [Synthroid] 25 mcg PO DAILY 05/25/21 [History Last Taken 05/25/21 07:30] Allergy/AdvReac Type Severity Reaction Status Date / Time latex Allergy Itching Verified 05/25/21 22:05 Social History Smoking Status: Never smoker History Elective abortions Hx Para 0 Spontaneous abortions Hx # Term Pregnancies Ectopic pregnancies Hx # Pregnancies Multiple births # of living children NST FHR Rate Baby A Baseline: 135 Variability:: Moderate Accelerations:: 15 x 15 Decelerations:: None NST Reactive:: Yes FHR Category:: Category I Uterine Activity:: 2-3 minutes ROS Eyes Eyes: Denies blurry vision, change in vision or spots in vision ENT HEENT: Denies dizziness or headache(s) Cardiovascular Cardiovascular: Denies abdominal pain, chest pain or dyspnea Respiratory/Chest Respiratory/Chest: Denies cough, dyspnea, shortness of breath at rest or shortness of breath with exertion Gastrointestinal Gastrointestinal: Denies abdominal pain, diarrhea or vomiting Genitourinary Genitourinary: Denies change in urinary stream, difficulty urinating or dysuria Musculoskeletal Musculoskeletal: Reports none Integumentary Integumentary: Denies rash Neurologic Neurologic: Denies dizziness, headache(s), memory loss or weakness Psychiatric Psychiatric: Reports none Vital Signs Vital Signs Vital Signs: 05/25/21 21:47 05/25/21 21:52 05/25/21 21:57 Pulse Rate 119 H 113 H 102 H Pulse Ox 100 99 99 Physical Exam Const alert, oriented x3 and no apparent distress General Appearance: cooperative Orientation / Consciousness: awake Exam Limitations: no limitations HEENT normocephalic Head and Scalp: normal to inspection Eyes General Eye: normal appearance of both eyes Neck full ROM and no lymphadenopathy Lymph Lymphatic: no lymphadenopathy noted Chest inspection of chest normal Resp normal respiratory effort, normal air movement and clear to auscultation bilaterally Effort and Inspection: able to speak in complete sentences and symmetric chest movement Cardio regular rate and regular rhythm GI normal to inspection, nondistended, normoactive bowel sounds OB / External & Speculum: vaginal bleeding Manual OB Exam: dilated 2, effaced 60 and station -2 Amniotic Fluid: bloody amniotic fluid Back/Spine normal ROM Extremity full ROM and no calf tenderness Skin no rashes or lesions noted General Skin Exam: no breakdown Neuro oriented x3 and CN's II-XII intact bilaterally Psych mental status grossly normal and thought process normal Labs Labs Labs: Blood Type A POSITIVE Antibody Screen NEGATIVE Hct 32.5 % (37-47) L Hgb 10.7 g/dL (12.0-15.0) L Rhogam given: No Rubella - immune HB- neg HC- neg HIV- NR RPR- NR GBS- negative Assessment & Plan (1) Protein S deficiency: (2) Factor V Leiden: (3) Hypothyroidism: QUALIFIERS: Hypothyroidism type: unspecified Qualified Code(s): E03.9 - Hypothyroidism, unspecified (4) 37 weeks gestation of : (5) PROM (premature rupture of membranes): QUALIFIERS: PROM gestational age: full term PROM onset of labor timing: unspecified duration between rupture of membranes and onset of labor Qualified Code(s): O42.92 - Full-term premature rupture of membranes, unspecified as to length of time between rupture and onset of labor (6) History of DVT (deep vein thrombosis): PLAN: CE- /-2 vertex presentation Cat. 1 tracing TOCO- every 2-3 minutes, palpate mild and relaxed in between Admit to labor and delivery- PROM Routine labs- add PTT/INR Start IV fluids and run per policy Pain medications when indicated GBS negative Patient desires physiological labor and would like to wait before start of Pitocin IV Dr. Bonilla notified of admission and is collaborating physician
[2021-05-25 22:01] VITALS: BMI 34.7
[2021-05-25 22:29] LABS: Absolute Lymphocyte Count 2.49 X10^3/uL (0.83-4.51); Basophil# 0.07 X10^3/uL; Basophil% 0.7 % (0-1); Eosinophil# 0.05 X10^3/uL; Eosinophils% 0.5 % (0-5); Hematocrit 31.9 % (37-47); Hemoglobin 10.4 g/dL (12.0-15.0); Lymphocyte # 2.49 X10^3/ul (0.83-4.51); Lymphocyte % 25.7 % (19-41); Mean Corp Hgb Conc 32.6 g/dL (32-36); Mean Corpuscular Hgb 29.3 pg (27.0-32.0); Mean Corpuscular Volume 89.9 fL (81-99); Mean Platelet Vol. 10.2 fl (6.2-12.0); Monocyte# 0.66 X10^3/uL; Monocyte% 6.8 % (0-10); NRBC Flagged by Analyzer 0 % (0-5); Neutrophil # 5.97 X10^3/uL (2.7-7.7); Neutrophil % 61.8 % (47-70); Platelet Count 188 K/mm3 (150-450); RBC Distribution Width CV 16.4 % (11.6-14.6); RBC Distribution Width SD 53.1 fl (35.1-43.9); Red Blood Count 3.55 M/mm3 (4.2-5.4); White Blood Count 9.7 K/mm3 (4.4-11.0)
[2021-05-25 22:30] LABS: POSITIVE COUNT NO; POSITIVE DIFFERENTIAL NO; POSITIVE MORPHOLOGY NO
[2021-05-25 22:33] LABS: Prothrombin Time (Protime)PT. 12.2 SECONDS (11.7-14.9)
[2021-05-25 22:34] LABS: Partial Thromboplast Time 24.9 Seconds (24.1-36.2)
[2021-05-25] MEDS: Lactated Ringers 500 ML 999 ML IV (22:53)
[2021-05-25 23:38] VITALS: BP 120/71; PULSE 95; TEMP 36.3
[2021-05-26] VITALS (36 sets, daily range): BP systolic 91–126; BP diastolic 51–71; PULSE 78–250; RESP 14–17; TEMP 36.2–36.9; O2SAT 83–100
[2021-05-26] MEDS: Lactated Ringers 1,000 ML 200 ML IV ×2 (03:40→10:00)
[2021-05-26] MEDS: Lactated Ringers 500 ML 999 ML IV ×2 (03:42→07:57)
[2021-05-26] MEDS: Oxytocin 30 units/NS 500 ml 30 UNITS/500 ML IV.SOLN IV (03:43)
[2021-05-26] MEDS: fentaNYL-bupivacaine (epidural) 100 ML BAG EPIDURAL (08:45)
--- NOTE | 2021-05-26 09:08 | PCM.PN.OB ---
Subjective Subjective Patient seen at bedside. Just got epidural for pain control. Feeling small amount of pressure with contractions but no pain. Objective Data Objective Data Vital Signs: Vital Signs Temp Pulse BP Pulse Ox 97.3 F L 100 108/56 L 100 05/26/21 07:18 05/26/21 09:07 05/26/21 09:07 05/26/21 09:03 Weight: 202 lb 6.4 oz Body Mass Index (BMI) 34.7 Intake & Output: Intake and Output for Last 24 Hours 05/24/21 05/25/21 05/26/21 23:59 23:59 23:59 Intake Total 710 / 710 1800.60 / 1800.60 Balance 710 / 710 1800.60 / 1800.60 Lab / Micro Data Result Diagrams: 05/25/21 21:55 Labs: Laboratory Results - last 24 hr 05/25/21 21:55: WBC 9.7, RBC 3.55 L, Hgb 10.4 L, Hct 31.9 L, MCV 89.9, MCH 29.3, MCHC 32.6, RDW Std Deviation 53.1 H, RDW Coeff of Gilberto 16.4 H, Plt Count 188, MPV 10.2, Immature Gran % (Auto) 4.500 H, Neut % (Auto) 61.8, Lymph % (Auto) 25.7, [place] % (Auto) 6.8, Eos % (Auto) 0.5, Baso % (Auto) 0.7, Absolute Neuts (auto) 6.0, Absolute Lymphs (auto) 2.49, Nucleated RBC % 0 05/25/21 21:55: Blood Type A POSITIVE, Antibody Screen NEGATIVE 05/25/21 21:55: PT 12.2, INR 1.0, APTT 24.9 Micro: Microbiology 05/25/21 21:50 Nasal Secretion SARS-CoV-2 Antigen (Rapid) - Final ROS Eyes Eyes: Denies blurry vision, change in vision or spots in vision ENT HEENT: Denies dizziness or headache(s) Cardiovascular Cardiovascular: Denies abdominal pain, chest pain or dyspnea Respiratory/Chest Respiratory/Chest: Denies cough, dyspnea, shortness of breath at rest or shortness of breath with exertion Gastrointestinal Gastrointestinal: Denies abdominal pain, diarrhea or vomiting Genitourinary Genitourinary: Denies change in urinary stream, difficulty urinating or dysuria Musculoskeletal Musculoskeletal: Reports none Integumentary Integumentary: Denies rash Neurologic Neurologic: Denies dizziness, headache(s), memory loss or weakness Physical Exam Const alert and no apparent distress General Appearance: cooperative and comfortable Exam Limitations: no limitations HEENT normocephalic Eyes General Eye: normal appearance of both eyes Neck full ROM General: normal visual inspection Chest Chest: symmetrical chest wall rise Resp normal respiratory effort and normal air movement Effort and Inspection: symmetric chest movement Auscultation: clear to auscultation bilaterally Cardio regular rate and regular rhythm GI normal to inspection, nondistended, normoactive bowel sounds Back/Spine normal ROM Extremity full ROM and no calf tenderness General Extremity: normal exam except as noted Skin no rashes or lesions noted Neuro CN's II-XII intact bilaterally Psych mental status grossly normal NST FHR Rate Baby A Baseline: 130 Variability:: Moderate Accelerations:: 15 x 15 Decelerations:: None NST Reactive:: Yes FHR Category:: Category I Uterine Activity:: 2-3 Assessment & Plan (1) 38 weeks gestation of : (2) PROM (premature rupture of membranes): QUALIFIERS: PROM onset of labor timing: unspecified duration between rupture of membranes and onset of labor PROM gestational age: full term Qualified Code(s): O42.92 - Full-term premature rupture of membranes, unspecified as to length of time between rupture and onset of labor (3) History of DVT (deep vein thrombosis): (4) Protein S deficiency: (5) Factor V Leiden: (6) Hypothyroidism: QUALIFIERS: Hypothyroidism type: unspecified Qualified Code(s): E03.9 - Hypothyroidism, unspecified PLAN: Cat. 1 tracing Pitocin at 4 mu/min- continue to increase per protocol IUPC placed without difficulty CE- /-2 Continue present plan of care Anticipate
[2021-05-26] MEDS: Oxytocin 30 units/NS 500 ml 30 UNITS/500 ML IV.SOLN 334 UNITS IV (11:07)
--- NOTE | 2021-05-26 11:31 | EX.PCM.OBRPT ---
Assessment & Plan (1) (spontaneous vaginal delivery): (2) Perineal laceration, second degree, delivered: (3) History of DVT (deep vein thrombosis): (4) Protein S deficiency: (5) Factor V Leiden: Maternal Data Information CARMEL Calculator Estimated Delivery Date Method Current WG Current Estimate 06/09/21 Manual 38w 0d Vaginal Delivery Maternal Presentation Maternal Presentation: Spontaneous Rupture of Membranes Maternal Presentation: Patient is a at 37.6 weeks gestation that arrived to unit with SROM for blood tinged fluid. Operative Information Date of Procedure: 05/26/21 Pre-Operative Diagnosis: Term gestation, SROM Post-Operative Diagnosis: , Live female infant Surgery / Procedure Performed: Spontaneous Vaginal Delivery Type of Anesthesia: Epidural Drain: Ayoub to straight drain Estimated Blood Loss: 300 Time of Delivery: 11:06 Findings Description of Procedure: Called to patient's room for complete dilation and feeling pressure. Provided bedside support through pushing. Patient pushing well with contractions. head delivered in direct OP position with minimal maternal effort followed by shoulders and remainder of . Vigorous female placed on maternal abdomen and attended to by nursing staff. Pitocin IV started for active management of the third stage of labor. 3 vessel cord clamped and cut by FOB after 3 minute delay. Placenta delivered Dudley mechanism with moderate sized clot noted that was expelled. Fundus firm. Second degree perineal laceration repaired in usual fashion using 3-0 Vicryl Rapide. Vaginal sweep completed by me. Hemostasis obtained. Patient is higher risk for PPH due to current daily Lovenox use. EBl 300 cc. APGARS 9/9. Dr. Bonilla notified of delivery. Presentation: Vertex (Direct OP) Amniotic Membrane Rupture Type: Spontaneous Time of Membrane Rupture: 2044 Amniotic Fluid Description: Bloody Placental Delivery Description: Spontaneous Cord Vessel Description: 3 Vessels Cord Entanglement: None Infant A Gender: Female (1 minute): 9 (5 minute): 9 Delayed Cord Clamping: Yes
[2021-05-26] MEDS: Ferrous Sulfate 325 MG Tablet PO (13:46)
[2021-05-26] MEDS: Naproxen 500 MG Tablet PO (13:46)
[2021-05-26] MEDS: Acetaminophen 500 MG Tablet 1000 MG PO (18:28)
[2021-05-27 00:29] VITALS: BP 107/62; PULSE 86; RESP 16; TEMP 36.2; O2SAT 99
[2021-05-27] MEDS: Naproxen 500 MG Tablet PO (00:29)
[2021-05-27 04:59] VITALS: BP 108/60; PULSE 93; RESP 18; TEMP 36.2; O2SAT 99
--- NOTE | 2021-05-27 06:38 | PN.OBGYN_ITS ---
Subjective Subjective Patient seen at bedside. Just showered. Feeling good. Denies any pain. Ambulating and voiding without difficulty. Denies headache, SOB, CP, or dizziness. independently. Desires discharge home today. Objective Data Objective Data Vital Signs: Vital Signs Temp Pulse Resp BP Pulse Ox 97.2 F L 93 18 108/60 99 05/27/21 04:59 05/27/21 04:59 05/27/21 04:59 05/27/21 04:59 05/27/21 04:59 Oxygen Delivery Method Room Air Weight: 202 lb 6.4 oz Body Mass Index (BMI) 34.7 Intake & Output: Intake and Output for Last 24 Hours 05/25/21 05/26/21 05/27/21 23:59 23:59 23:59 Intake Total 710 / 710 3537.76 / 3537.76 Output Total 1650 / 1650 Balance 710 / 710 1887.76 / 1887.76 Lab / Micro Data Result Diagrams: 05/25/21 21:55 Micro: Microbiology 05/25/21 21:50 Nasal Secretion SARS-CoV-2 Antigen (Rapid) - Final ROS Eyes Eyes: Denies blurry vision, change in vision or spots in vision ENT HEENT: Denies dizziness or headache(s) Cardiovascular Cardiovascular: Denies abdominal pain, chest pain or dyspnea Respiratory/Chest Respiratory/Chest: Denies cough, dyspnea, shortness of breath at rest or shortness of breath with exertion Gastrointestinal Gastrointestinal: Denies abdominal pain, diarrhea or vomiting Genitourinary Genitourinary: Denies change in urinary stream, difficulty urinating or dysuria Musculoskeletal Musculoskeletal: Reports none Integumentary Integumentary: Denies rash Neurologic Neurologic: Denies dizziness, headache(s), memory loss or weakness Physical Exam Const alert and no apparent distress General Appearance: cooperative and comfortable Exam Limitations: no limitations HEENT normocephalic Eyes General Eye: normal appearance of both eyes Neck full ROM General: normal visual inspection Chest Chest: symmetrical chest wall rise Resp normal respiratory effort and normal air movement Effort and Inspection: symmetric chest movement Auscultation: clear to auscultation bilaterally Cardio regular rate and regular rhythm GI normal to inspection, nondistended, normoactive bowel sounds Back/Spine normal ROM Extremity full ROM and no calf tenderness General Extremity: normal exam except as noted Skin no rashes or lesions noted Neuro CN's II-XII intact bilaterally Psych mental status grossly normal Assessment & Plan (1) Perineal laceration, second degree, delivered: (2) (spontaneous vaginal delivery): (3) History of DVT (deep vein thrombosis): (4) Protein S deficiency: (5) Factor V Leiden: PLAN: PPD 1 Routine care support Continue Lovenox 60 mg SQ Daily- patient to follow up track coach Discharge home with follow up in office
--- NOTE | 2021-05-27 06:46 | PCM.DC ---
Discharge Instructions Diet Discharge Diet: No restrictions Activity May resume sexual activity in: 6-8 weeks Weight Bearing Status: Weight bearing as tolerated Dressing / Incision Call your doctor if you observe: Fever of 101 or Higher, Inability to urinate, Using more than 1 pad per hour, Shortness of breath, Chest pain, Calf discomfort and Uncontrolled pain Follow Up Care Please Follow Up With: Macy Workman CNM When: 2 weeks virtual visit/ 6 weeks in office Test Results: Test results from this visit will be discussed in further detail at your follow-up appointment, if applicable. Discharge Plan Admission Admit Date/Time: 05/25/21 21:55 Primary Reason for Your Visit: Labor and Delivery Attending Provider: Macy Workman Discharge Orders/Prescriptions Prescriptions: New enoxaparin 60 mg/0.6 mL Syringe 60 mg subcut DAILY Qty: 0 RF: 0 Continued ferrous sulfate 325 MG tablet 325 mg PO QODAY RF: 0 PNV cmb#95-ferrous fumarate-FA 1 EACH tablet 1 ea PO DAILY RF: 0 levothyroxine [Synthroid] 25 mcg Tablet 25 mcg PO DAILY RF: 0 Discontinued enoxaparin 80 MG/0.8 ML syringe 80 mg SQ BID RF: 0 aspirin 81 mg Capsule RF: 0 Disposition Disposition (needs filled in before D/C Order can be placed): Home, Self Care
[2021-05-27] MEDS: Levothyroxine 25 MCG TABLET PO (07:11)
[2021-05-27 09:20] VITALS: BP 114/62; PULSE 96; RESP 16; TEMP 36.2; O2SAT 98
[2021-05-27] MEDS: Acetaminophen 500 MG Tablet 1000 MG PO (09:24)
[2021-05-27] MEDS: Prenatal Vits Tablet 1 TABLET PO (09:24)
[2021-05-27] MEDS: Enoxaparin 60 MG/0.6 ML Syringe SC (09:24)
[2021-05-27 12:00] VITALS: BP 104/59; PULSE 95; RESP 16; TEMP 36.4; O2SAT 98
== END 2021-05-27 13:20 | disposition home or self-care (01) | DRG 806 ==
LOC: WPOUT 21:59 → WP 21:59
PROVIDERS: Admitting Provider Advanced Practice Midwife; Visit Provider Advanced Practice Midwife
DX: O42.92 Full-term premature rupture of membranes, unspecified as to length of time between rupture and onset of labor (principal); Z37.0 Single live birth; D68.59 Other primary thrombophilia; D68.2 Hereditary deficiency of other clotting factors; O99.12 Other diseases of the blood and blood-forming organs and certain disorders involving the immune mechanism complicating childbirth; E03.9 Hypothyroidism, unspecified; Z79.01 Long term (current) use of anticoagulants; Z3A.38 38 weeks gestation of pregnancy; O99.284 Endocrine, nutritional and metabolic diseases complicating childbirth; O70.1 Second degree perineal laceration during delivery; Z79.82 Long term (current) use of aspirin; Z86.718 Personal history of other venous thrombosis and embolism; Z79.890 Hormone replacement therapy; Z20.822 Contact with and (suspected) exposure to COVID-19
CPT/HCPCS: 59025; 59050; 85025; 85610; 85730; 86850; 86900; 86901; 87426; 99218; J7120; G0378

== ENCOUNTER 2024-05-18 23:17 | Outpatient (CLI) | payer OTHER, SELFPAY ==
[2024-05-18 23:21] VITALS: BMI 33.1
[2024-05-18 23:31] VITALS: BP 125/76; PULSE 98; RESP 16; TEMP 36.3; O2SAT 98
[2024-05-18 23:32] VITALS: PULSE 105; O2SAT 98
--- NOTE | 2024-05-19 08:51 | OB.TRI.HP_ITS ---
HPI - General General Date of Admission: 05/18/24 Date of Service: 05/18/24 Chief Complaint: contractions HPI Narrative MAC TALBOT, is a 28 F 3 para 2 who presents complaining contractions. Maternal Data Information Final CARMEL: 06/01/24 Gestational age: 38 0/7 [facility] Medical History (Updated 05/19/24 @ 08:[address] Karolina Murrieta MD) Wears contact lenses Anxiety Low iron Restless legs Non-smoker Shortness of breath on exertion Leg cramps History of Holter monitoring History of echocardiogram History of stress test Perineal laceration, second degree, delivered (spontaneous vaginal delivery) DVT (deep venous thrombosis) depression PROM (premature rupture of membranes) 37 weeks gestation of Anxiety DVT (deep venous thrombosis) Hypothyroidism Factor V Leiden Protein S deficiency 38 weeks gestation of Home Medications ?Medication ?Instructions ?Recorded ?Last Taken ?Type vit no.95-ferrous 1 ea PO DAILY vitamin 07/22/19 05/24/21 08:00 History fumarate 28 mg-folic acid 800 mcg tablet aspirin 81 mg tablet,delayed 81 mg PO DAILY 05/13/24 Unknown History release (Adult Low Dose Aspirin) enoxaparin 80 mg/0.8 mL 80 mg subcut DAILY CLOTTING DISORD 05/13/24 05/18/24 08:00 History subcutaneous syringe Allergy/AdvReac Type Severity Reaction Status Date / Time latex Allergy Itching Verified 05/18/24 23:40 Social History Smoking Status: Never smoker History 2 Elective abortions Hx Para 1 Spontaneous abortions Hx # Term Pregnancies Ectopic pregnancies Hx # Pregnancies Multiple births # of living children 2 NST FHR Rate Baby A Baseline: 130 Variability:: Moderate Accelerations:: 15 x 15 Decelerations:: None NST Reactive:: Yes Uterine Activity:: Irregular contractions Assessment & Plan (1) High-risk in third trimester: PLAN: False labor. No cervical change. DC home with routine instructions follow-up in the office as scheduled or as needed.
== END 2024-05-19 01:29 | disposition home or self-care (01) ==
LOC: WPOUT 23:19 → WP 23:19
PROVIDERS: PCP Nurse Practitioner Family; Referring Provider Obstetrics & Gynecology; Visit Provider Obstetrics & Gynecology
DX: O47.1 False labor at or after 37 completed weeks of gestation (principal); O09.93 Supervision of high risk pregnancy, unspecified, third trimester; Z79.82 Long term (current) use of aspirin; Z79.01 Long term (current) use of anticoagulants; Z79.899 Other long term (current) drug therapy; Z3A.38 38 weeks gestation of pregnancy
CPT/HCPCS: 59025; 59050; 99221; G0378

== ENCOUNTER 2024-05-25 07:20 | Inpatient (IN) | payer OTHER, SELFPAY ==
[2024-05-25] VITALS (41 sets, daily range): BP systolic 100–132; BP diastolic 52–78; PULSE 68–103; RESP 15–17; TEMP 36.3–36.9; O2SAT 95–100; BMI 34.9
[2024-05-25] MEDS: Lactated Ringers 1,000 ML 50 ML IV (07:55)
[2024-05-25] MEDS: Oxytocin 15 Units/NS 250ml 15 UNITS/250 ML IV.SOLN 2 UNITS IV (07:56)
[2024-05-25 08:47] LABS: Absolute Lymphocyte Count 1.32 X10^3/uL (0.83-4.51); Absolute Neutrophil Count 3.9 X10^3/uL (2.0-7.7); Basophil# 0.02 X10^3/uL; Basophil% 0.3 % (0-1); Eosinophil# 0.02 X10^3/uL; Eosinophils% 0.3 % (0-5); Hematocrit 32.8 % (37-47); Hemoglobin 11.2 g/dL (12.0-15.0); Lymphocyte # 1.32 X10^3/ul (0.83-4.51); Mean Corp Hgb Conc 34.1 g/dL (32-36); Mean Corpuscular Hgb 29.6 pg (27.0-32.0); Mean Corpuscular Volume 86.5 fL (81-99); Mean Platelet Vol. 10.5 fl (6.2-12.0); Monocyte# 0.39 X10^3/uL; Monocyte% 6.8 % (0-10); NRBC Flagged by Analyzer 0 % (0-5); Neutrophil # 3.92 X10^3/uL (2.7-7.7); Neutrophil % 68.6 % (47-70); Platelet Count 158 K/mm3 (150-450); RBC Distribution Width CV 18.4 % (11.6-14.6); RBC Distribution Width SD 57.3 fl (35.1-43.9); Red Blood Count 3.79 M/mm3 (4.2-5.4); White Blood Count 5.7 K/mm3 (4.4-11.0)
[2024-05-25 09:33] LABS: Syphilis Antibodies Non-reactive
[2024-05-25] MEDS: Lactated Ringers 1,000 ML 999 ML IV (11:12)
[2024-05-25] MEDS: fentaNYL-bupivacaine (epidural) 100 ML BAG EPIDURAL (12:27)
--- NOTE | 2024-05-25 12:36 | PN.OBGYN_ITS ---
Subjective Subjective AROM for clear fluid. 3 cm/60/-2 Pit at 4 Epidural in Objective Data Objective Data Vital Signs: Vital Signs Temp Pulse Resp BP Pulse Ox 98.1 F 85 16 125/78 H 99 05/25/24 11:14 05/25/24 12:34 05/25/24 12:29 05/25/24 12:34 05/25/24 12:31 Weight: 89.358 kg Body Mass Index (BMI) 34.9 Intake & Output: Intake and Output for Last 24 Hours 05/23/24 05/24/24 05/25/24 23:59 23:59 23:59 Intake Total 506.93 / 506.93 Output Total 500 / 500 Balance 6.93 / 6.93 Lab / Micro Data 05/25/24 07:45 Labs: Laboratory Results - last 24 hr 05/25/24 07:45: WBC 5.7, RBC 3.79 L, Hgb 11.2 L, Hct 32.8 L, MCV 86.5, MCH 29.6, MCHC 34.1, RDW Std Deviation 57.3 H, RDW Coeff of Gilberto 18.4 H, Plt Count 158, MPV 10.5, Immature Gran % (Auto) 1.000 H, Neut % (Auto) 68.6, Lymph % (Auto) 23.0, [place] % (Auto) 6.8, Eos % (Auto) 0.3, Baso % (Auto) 0.3, Absolute Neuts (auto) 3.9, Absolute Lymphs (auto) 1.32, Nucleated RBC % 0, Syphilis Total Ab Non- reactive, Blood Type A POSITIVE, Antibody Screen NEGATIVE NST FHR Rate Baby A Baseline: 130 Variability:: Moderate Accelerations:: 15 x 15 Decelerations:: None NST Reactive:: Yes FHR Category:: Category I Uterine Activity:: q 3 Assessment & Plan (1) 39 weeks gestation of : (2) Protein S deficiency: (3) Factor V Leiden: PLAN: Plan Pitocin per protocol Epidural in
--- NOTE | 2024-05-25 12:41 | PCM.HP.OB ---
HPI - General General Date of Admission: 05/25/24 Date of Service: 05/25/24 Chief Complaint: Induction HPI Narrative MAC TALBOT, is a 28 F who presents induction of labor at 39 weeks. On lovenox BID for hx of DVT and factor V, Protein S deficiency. Last dose yesterday Maternal Data Information Final CARMEL: 06/01/24 Gestational age: 39 [facility] Medical History Wears contact lenses Anxiety Low iron Restless legs Non-smoker Shortness of breath on exertion Leg cramps History of Holter monitoring History of echocardiogram History of stress test Perineal laceration, second degree, delivered (spontaneous vaginal delivery) DVT (deep venous thrombosis) depression PROM (premature rupture of membranes) 37 weeks gestation of Anxiety DVT (deep venous thrombosis) Hypothyroidism Factor V Leiden Protein S deficiency 38 weeks gestation of Home Medications ?Medication ?Instructions ?Recorded ?Last Taken ?Type vit no.95-ferrous 1 ea PO DAILY vitamin 07/22/19 05/24/21 08:00 History fumarate 28 mg-folic acid 800 mcg tablet aspirin 81 mg tablet,delayed 81 mg PO DAILY pre-e 05/13/24 05/24/24 08:00 History release (Adult Low Dose Aspirin) enoxaparin 80 mg/0.8 mL 80 mg subcut DAILY CLOTTING DISORD 05/13/24 05/24/24 07:00 History subcutaneous syringe Allergy/AdvReac Type Severity Reaction Status Date / Time latex Allergy Itching Verified 05/25/24 07:22 Family History Father Myocardial infarction Mother Multiple sclerosis affecting Protein C deficiency Factor 5 Leiden mutation, heterozygous Social History Smoking Status: Never smoker History 3 Elective abortions Hx Para 2 Spontaneous abortions Hx # Term Pregnancies Ectopic pregnancies Hx # Pregnancies Multiple births # of living children 2 NST FHR Rate Baby A Variability:: Moderate Accelerations:: 15 x 15 Decelerations:: None NST Reactive:: Yes FHR Category:: Category I Uterine Activity:: none ROS Constitutional Constitutional: Denies fatigue, fever(s) or malaise Eyes Eyes: Denies change in vision ENT HEENT: Denies dizziness or headache(s) Cardiovascular Cardiovascular: Denies chest pain, dyspnea or lightheadedness Respiratory/Chest Respiratory/Chest: Denies cough or dyspnea Gastrointestinal Gastrointestinal: Denies change in bowel habits Genitourinary Genitourinary: Denies burning urination or genital lesions Integumentary Integumentary: Denies rash Neurologic Neurologic: Denies confusion, dizziness, headache(s), numbness or weakness Vital Signs Vital Signs Vital Signs: 05/25/24 07:50 05/25/24 07:50 05/25/24 07:50 Temperature Temperature Source Pulse Rate 96 Respiratory Rate 16 Blood Pressure 125/72 H BP Systolic 125 BP Diastolic 72 Pulse Ox 05/25/24 07:50 05/25/24 08:06 05/25/24 08:06 Temperature Temperature Source Temporal Pulse Rate Respiratory Rate 16 Blood Pressure BP Systolic BP Diastolic Pulse Ox 98 05/25/24 08:06 05/25/24 08:48 05/25/24 08:48 Temperature 98.4 F Temperature Source Temporal Pulse Rate Respiratory Rate 16 Blood Pressure BP Systolic BP Diastolic Pulse Ox 05/25/24 08:48 05/25/24 08:48 05/25/24 08:49 Temperature 98.3 F Temperature Source Pulse Rate Respiratory Rate Blood Pressure 117/67 BP Systolic 117 BP Diastolic 67 Pulse Ox 99 05/25/24 08:49 05/25/24 09:58 05/25/24 09:58 Temperature Temperature Source Pulse Rate 80 73 Respiratory Rate Blood Pressure 112/63 BP Systolic 112 BP Diastolic 63 Pulse Ox 05/25/24 09:59 05/25/24 09:59 05/25/24 09:59 Temperature Temperature Source Temporal Pulse Rate Respiratory Rate 16 Blood Pressure BP Systolic BP Diastolic Pulse Ox 99 05/25/24 09:59 05/25/24 11:14 05/25/24 11:14 Temperature 97.3 F L Temperature Source Pulse Rate 75 Respiratory Rate Blood Pressure 123/76 H BP Systolic 123 BP Diastolic 76 Pulse Ox 05/25/24 11:14 05/25/24 11:14 05/25/24 11:14 Temperature Temperature Source Temporal Pulse Rate Respiratory Rate 16 Blood Pressure BP Systolic BP Diastolic Pulse Ox 99 05/25/24 11:14 05/25/24 11:15 05/25/24 11:15 Temperature 98.1 F Temperature Source Pulse Rate 83 Respiratory Rate Blood Pressure BP Systolic BP Diastolic Pulse Ox 99 05/25/24 12:13 05/25/24 12:13 05/25/24 12:14 Temperature Temperature Source Pulse Rate 103 H Respiratory Rate Blood Pressure 132/75 H BP Systolic 132 BP Diastolic 75 Pulse Ox 100 05/25/24 12:14 05/25/24 12:18 05/25/24 12:18 Temperature Temperature Source Pulse Rate 84 93 Respiratory Rate Blood Pressure BP Systolic BP Diastolic Pulse Ox 100 05/25/24 12:19 05/25/24 12:19 05/25/24 12:23 Temperature Temperature Source Pulse Rate 86 92 Respiratory Rate Blood Pressure 119/69 BP Systolic 119 BP Diastolic 69 Pulse Ox 05/25/24 12:23 05/25/24 12:24 05/25/24 12:24 Temperature Temperature Source Pulse Rate 96 Respiratory Rate Blood Pressure 122/71 H BP Systolic 122 BP Diastolic 71 Pulse Ox 100 05/25/24 12:24 05/25/24 12:29 05/25/24 12:29 Temperature Temperature Source Pulse Rate 86 Respiratory Rate 17 Blood Pressure 123/69 H BP Systolic 123 BP Diastolic 69 Pulse Ox 05/25/24 12:29 05/25/24 12:31 05/25/24 12:31 Temperature Temperature Source Pulse Rate 90 Respiratory Rate 16 Blood Pressure BP Systolic BP Diastolic Pulse Ox 99 05/25/24 12:34 05/25/24 12:34 05/25/24 12:39 Temperature Temperature Source Temporal Pulse Rate 85 Respiratory Rate Blood Pressure 125/78 H BP Systolic 125 BP Diastolic 78 Pulse Ox 05/25/24 12:39 05/25/24 12:39 05/25/24 12:40 Temperature 97.6 F L Temperature Source Pulse Rate Respiratory Rate 16 Blood Pressure 112/62 BP Systolic 112 BP Diastolic 62 Pulse Ox 05/25/24 12:40 Temperature Temperature Source Pulse Rate 75 Respiratory Rate Blood Pressure BP Systolic BP Diastolic Pulse Ox Weight Weight: 89.358 kg Body Mass Index (BMI) 34.9 Physical Exam Const alert and no apparent distress General Appearance: cooperative HEENT normocephalic Resp normal respiratory effort Cardio regular rate GI soft to palpation GI Narrative: gravid, nontender, appropriate for gestational age Extremity no calf tenderness General Extremity: edema Skin no wounds Rashes: No rashes noted Psych activity/motor behavior normal Labs Labs Labs: Blood Type A POSITIVE Antibody Screen NEGATIVE Hct 32.8 % (37-47) L Hgb 11.2 g/dL (12.0-15.0) L Syphilis Total Ab Non-reactive Rhogam given: No Assessment & Plan (1) Factor V Leiden: (2) Protein S deficiency: (3) 39 weeks gestation of : PLAN: Plan Pitocin per protocol Epidural prn Arom prn
--- NOTE | 2024-05-25 14:48 | OB.VAGDELI_ITS ---
Assessment & Plan (1) Factor V Leiden: (2) Protein S deficiency: (3) 39 weeks gestation of : Maternal Data Information Final CARMEL: 05/25/24 Gestational age: 39 Vaginal Delivery Maternal Presentation Maternal Presentation: Medically Indicated Induction Maternal Presentation: Anticoagulation for DVT hx and thrombophilia Type of Induction: Pitocin and Amniotomy Vaginal Delivery Information Procedure Performed: Spontaneous Vaginal Delivery Surgeon/Practitioner: Mariela Rios Date of Procedure: 05/25/24 Pre-Procedure Diagnosis: Term Post-Procedure Diagnosis: term delivery Type of anesthesia: Epidural Estimated Blood Loss: 100 cc Time of Delivery: 14:35 Findings Description of procedure: IOL with pitocin and AROM. Progressed quickly after AROM from 3 to complete. Pushed over an intact perineum for a few contractions delivered the head CHUYITA. Tight nuchal x1 clamped and cut on perineum. Anterior and posterior shoulders delivered spontaneously followed by the rest of the body. The placenta delivered with gentle traction. A 1st degree laceration was repaired with 2-0 vicryl. All sponge and needle counts were correct. 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
[2024-05-25] MEDS: Oxytocin 15 Units/NS 250ml 15 UNITS/250 ML IV.SOLN 83 UNITS IV (15:15)
[2024-05-25] MEDS: 0.9% Saline Lock 10 ML Syringe IV (18:10)
[2024-05-25] MEDS: Enoxaparin 80 MG/0.8 ML Syringe SC (21:50)
[2024-05-26] VITALS (9 sets, daily range): BP systolic 102–119; BP diastolic 53–73; PULSE 72–93; RESP 16–18; TEMP 36.5–37.2; O2SAT 96–98
[2024-05-26] MEDS: Acetaminophen 500 MG Tablet 1000 MG PO ×2 (03:02→10:05)
--- NOTE | 2024-05-26 07:35 | PN.OBGYN_ITS ---
Subjective Subjective Doing well. Ambulating and voiding without difficulty. Mild lochia. Breast feeding. Objective Data Objective Data Vital Signs: Vital Signs Temp Pulse Resp BP Pulse Ox O2 Del Method 97.7 F L 76 16 102/53 L 96 Room Air 05/26/24 04:00 05/26/24 04:23 05/26/24 04:00 05/26/24 04:23 05/26/24 04:21 05/26/24 04:00 Oxygen Delivery Method Room Air Weight: 89.358 kg Body Mass Index (BMI) 34.9 Intake & Output: Intake and Output for Last 24 Hours 05/24/24 05/25/24 05/26/24 23:59 23:59 23:59 Intake Total 2791.70 / 2791.70 Output Total 750 / 1150 400 / 400 Balance 2041.70 / 1641.70 -400 / -400 Lab / Micro Data 05/25/24 07:45 Labs: Laboratory Results - last 24 hr 05/25/24 07:45: WBC 5.7, RBC 3.79 L, Hgb 11.2 L, Hct 32.8 L, MCV 86.5, MCH 29.6, MCHC 34.1, RDW Std Deviation 57.3 H, RDW Coeff of Gilberto 18.4 H, Plt Count 158, MPV 10.5, Immature Gran % (Auto) 1.000 H, Neut % (Auto) 68.6, Lymph % (Auto) 23.0, [place] % (Auto) 6.8, Eos % (Auto) 0.3, Baso % (Auto) 0.3, Absolute Neuts (auto) 3.9, Absolute Lymphs (auto) 1.32, Nucleated RBC % 0, Syphilis Total Ab Non- reactive, Blood Type A POSITIVE, Antibody Screen NEGATIVE ROS Constitutional Constitutional: Denies fatigue, fever(s) or malaise Eyes Eyes: Denies change in vision ENT HEENT: Denies dizziness or headache(s) Cardiovascular Cardiovascular: Denies chest pain, dyspnea or lightheadedness Respiratory/Chest Respiratory/Chest: Denies cough or dyspnea Gastrointestinal Gastrointestinal: Denies change in bowel habits Genitourinary Genitourinary: Denies burning urination or genital lesions Integumentary Integumentary: Denies rash Neurologic Neurologic: Denies confusion, dizziness, headache(s), numbness or weakness Physical Exam Const alert and no apparent distress Narrative: Fundus firm, below umbilicus. Assessment & Plan (1) Protein S deficiency: (2) Factor V Leiden: (3) (spontaneous vaginal delivery): COMMENT: X3 PLAN: Plan Discharge home this afternoon Has plenty lovenox at home
--- NOTE | 2024-05-26 07:39 | DS.PCM_ITS ---
Providers Date of Admission: 05/25/24 Date of Discharge: 05/26/24 Primary Care Physician: NP. Gill Caicedo, [facility] Reason For Visit: VAGINAL DELIVERY Diagnosis Discharge Diagnosis (1) Protein S deficiency: Status: Acute Code(s): D68.59 - Other primary thrombophilia (2) Factor V Leiden: Status: Acute Code(s): D68.51 - Activated protein C resistance (3) (spontaneous vaginal delivery): Status: Acute Code(s): O80 - Encounter for full-term uncomplicated delivery Plan Discharge home this afternoon Has plenty lovenox at home Medications at Discharge Home Medications vit no.95-ferrous fumarate 28 mg-folic acid 800 mcg tablet 1 ea PO DAILY vitamin 07/22/19 enoxaparin 80 mg/0.8 mL subcutaneous syringe 80 mg subcut DAILY CLOTTING DISORD 05/13/24 enoxaparin 80 mg/0.8 mL subcutaneous syringe 80 mg (0.8 mL) subcut BID 90 days #144 mL 05/26/24 Hospital Course Operations None Procedures None Summary of Care Provided Minutes Spent on Discharge: 20 Hospital Course: IOL for thrombophilia on lovenox. Uncomplicated . No problems . Breast feeding. Physical Exam Const alert and no apparent distress Narrative: Fundus firm, below umbilicus. Weight / BMI Weight Weight: 89.358 kg Body Mass Index (BMI) 34.9 ABG / Lab / Microbiology Data 05/25/24 07:45 Laboratory: Laboratory Results - last 24 hr 05/25/24 07:45: WBC 5.7, RBC 3.79 L, Hgb 11.2 L, Hct 32.8 L, MCV 86.5, MCH 29.6, MCHC 34.1, RDW Std Deviation 57.3 H, RDW Coeff of Gilberto 18.4 H, Plt Count 158, MPV 10.5, Immature Gran % (Auto) 1.000 H, Neut % (Auto) 68.6, Lymph % (Auto) 23.0, [place] % (Auto) 6.8, Eos % (Auto) 0.3, Baso % (Auto) 0.3, Absolute Neuts (auto) 3.9, Absolute Lymphs (auto) 1.32, Nucleated RBC % 0, Syphilis Total Ab Non- reactive, Blood Type A POSITIVE, Antibody Screen NEGATIVE D/C Instructions May resume sexual activity in: 6 weeks DC O2, CPAP, BIPAP Needs Home O2 Discharge instructions: No Please Follow Up With: Karolina Murrieta MD When: Follow up with our office in 1-2 and 6 weeks or as needed. [phone] Meaningful Use Info Meaningful Use Meaningful Use Diagnoses (Choose all that apply): None applicable Ischemic Stroke Statin Dosing Therapy Reference: STATIN DOSE THERAPY REFERENCE: * Patients > 75 years receive moderate or high dose statin therapy. * Patients 75 years or YOUNGER should receive HIGH intensity statin dose unless contraindicated. You will be required to document reason for non-treatment if statin daily dose does not meet guidelines. HIGH DOSE STATIN THERAPY DAILY Atorvastatin > than or = to 40 mg Rosuvastatin > than or = to 20 mg Amlodipine + Atorvastatin > than or = to 2.5/40 mg Ezetimibe + Simvastatin 10/80 mg Simvastatin 80mg Discharge Plan Admission Admit Date/Time: 05/25/24 07:20 Primary Reason for Your Visit: Induction Attending Provider: Mariela Rios Primary Care Provider: Gill Caicedo Discharge Orders/Prescriptions Prescriptions: New enoxaparin 80 mg/0.8 mL Syringe 80 mg subcut BID 90 Days Qty: 144 0RF Continued PNV cmb#95-ferrous fumarate-FA 1 EACH tablet 1 ea PO DAILY Discontinued aspirin [Adult Low Dose Aspirin] 81 mg tablet,delayed release (DR/EC) 81 mg PO DAILY No Action enoxaparin 80 mg/0.8 mL syringe 80 mg subcut DAILY Rx Instructions: PAT TAKES ONE TIME PER DAY Referrals / Follow Up: Gill Caicedo, UNEMPLOYMENT INSURANCE HEARING OFFICER-C [Primary Care Provider] - Disposition Disposition (needs filled in before D/C Order can be placed): Home, Self Care
[2024-05-26] MEDS: Prenatal Vits Tablet 1 TABLET PO (10:05)
[2024-05-26] MEDS: Enoxaparin 80 MG/0.8 ML Syringe SC (10:05)
--- NOTE | 2024-05-26 16:13 | CASEMGMT ---
Social Work Assessment Labor and Delivery Unit Patient Address: [address] [place] [address] [address] [place] [address] Phone number: [phone] Date of Referral: 05/25/24 Time of Referral:? 2231 Referred By: Dr. Rios Date of Intervention: ?05/26/24? Time of Intervention:? 1209 Reason for Referral:? mental health Sw completed chart review and acknowledges social work consult due to maternal mental health history. Sw presented to bedside and introduced self to mother of baby (MOB- Kassandra) and father of baby (FOBridget- Abner). MOB had other visitors present: both grandma's and their other two children. Sw offered to return at a later time, but MOB asked to meet now. Sw explained reasons for sw involvement and completed psychosocial assessment. History obtained from: medical records, MOB and FOB. Household composition: MOB, FOBridget, their two older children: Kobe (4) and Mojgan (3). baby to be added to residence when ready for discharge. Parents deny any issues or concerns with housing, stating it is safe and secure. Patient's parent/guardian status:? ?JAMES states that she and FOBridget met at a taoism camp and have been together for 8 years. NO concerns reported of domestic violence or intimate partner violence. baby is couples third child together. Medical History: ?JAMES is 28 year old female who is 3, para 2- now 3 following labor and delivery of . JAMES received routine care during with [facility]. JAMES presented to hospital for scheduled induction of labor and delivered baby on 05/25/24 at 39 weeks gestation via vaginal delivery. Baby boy, named Valerie, was born weighing 7lb 7oz with apgars of 9 and 9 at one and five minutes of life, respectfully. JAMES is breast feeding and baby will be followed by Dr. Caicedo for pediatrics. Educational Status:? Both parents graduated from high school. 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 Infant Supplies:All necessary baby supplies obtained, including: car seat, safe sleep space, clothes, diapers and wipes. JAMES states that she has a pump but it is from her first baby. Sw encouraged MOB to talk to who can help her obtain a new one through insurance. Childcare/Caregiver(s):? MOB will be the primary caregiver to baby along with FOB when not at work. Transportation:?? NO barriers. Programs/Agencies Involved: ???Parents are not connected to any community agencies that assist them financially. Children Services/Legal Issues:??No history of children services involvement. NO issues or concerns warranting referral to be made. ? Behavioral Health Issues: ??Mental Health History:??FOB denies mental health history. MOB states that she has been diagnosed with anxiety and did experience depression after her daughter was born. MOB stated at that time she was flat affect, had rage and was always on edge. MOB states that she talked to a counselor at [facility] and was briefly prescribed zoloft, but she did not like how it made her feel. ? Substance Use History:??No substance use prior to and during . Family History: Parents deny family history of substance use or significant mental health diagnoses. ? Drug Screens: No drug screens observed in chart review. Family/Social Stressors:? Parents deny any issues, concerns or stressors. Support Systems: MOB identifies her mom, paternal grandma and FOB as her biggest supports at this time. Depression/Shaken Baby/Safe Sleeping: Sw educated MOB on signs and symptoms of baby blues and mood and anxiety disorders to be mindful of. MOB states that she feels more mindful of what to expect going into this period. MOB states that there were several things going on within a short period of time when she had her daughter and she knows that significantly impacted her mental health. MOB states that she feels like she has more help during this time and feels more comfortable asking for help. FOB states if MOB were to struggle he would know what that looks like and would know how to help and support her. Parents educated on shaken baby prevention and ABCs of safe sleep. ASSESSMENT:? MOB and baby admitted following labor and delivery. MOB and FOB both observed to provide loving and appropriate hands on care to . MOB sitting on bed comfortably with their daughter, and states that it's her daughters birthday today. MOB states that she feels slightly overwhelmed with how her daughter is going to transition to her not giving her 100% of herself. Coping skills and strategies discussed. MOB states that she has healthy and safe coping skills and knows that she will also have to make utilizing them a priority during this period. MOB states that she is open to starting medication if her mental health starts to suffer, and also feels comfortable going back for counseling as well. All baby supplies obtained and a lot of natural supports in place. PLAN:?? No other services requested or indicated. MOB and baby to be discharged when medically ready. Parents were provided literature regarding: signs and symptoms of baby blues and mood and anxiety disorders, Help Me Grow, shaken baby prevention, ABCs of safe sleep and a list of county resources that are available for them should any needs present themselves. Jackeline Abrams, WELDING MACHINE OPERATOR HELPER [employer], PAD TUFTER
== END 2024-05-26 17:04 | disposition home or self-care (01) | DRG 806 ==
PROVIDERS: Admitting Provider Obstetrics & Gynecology; PCP Nurse Practitioner Family; Referring Provider Obstetrics & Gynecology; Visit Provider Obstetrics & Gynecology
DX: O99.12 Other diseases of the blood and blood-forming organs and certain disorders involving the immune mechanism complicating childbirth (principal); Z37.0 Single live birth; D68.2 Hereditary deficiency of other clotting factors; D68.59 Other primary thrombophilia; D68.51 Activated protein C resistance; O69.1XX0 Labor and delivery complicated by cord around neck, with compression, not applicable or unspecified; O70.0 First degree perineal laceration during delivery; Z3A.39 39 weeks gestation of pregnancy; Z79.01 Long term (current) use of anticoagulants; Z79.82 Long term (current) use of aspirin; Z79.899 Other long term (current) drug therapy; Z86.718 Personal history of other venous thrombosis and embolism
CPT/HCPCS: 59025; 59050; 85025; 86780; 86850; 86900; 86901; 99221; A4216; G0378